=== PATIENT | female | born 1940 | race Caucasian/White ===

== ENCOUNTER 2017-11-18 18:30 | Inpatient (IN) | payer MEDICARE, BC ==
[2017-11-18 19:02] VITALS: BP 115/86
[2017-11-18] MEDS ORDERED: Maalox 30 mL Cup PO PRN (22:09)
[2017-11-19] MEDS: Potassium Chloride Elixir 20 mEq /15 mL UDC PO SCH (09:01)
[2017-11-19] MEDS: OLANZapine 5 mg Oral Disintegrating Tab PO SCH ×2 (09:03→16:29)
[2017-11-19] MEDS: Aspirin 325 mg EC PO SCH (15:07)
--- NOTE | 2017-11-19 19:09 | Psychiatric Evaluation ---
DATE OF SERVICE: 11/19/2017 JUSTIFICATION FOR HOSPITALIZATION: The patient is disorganized, hitting herself, hitting others. CHIEF COMPLAINT: Unruly behaviors. HISTORY OF PRESENT ILLNESS: A 77-year-old female coming into the hospital because she was disorganized, aggressive, was hitting self and hitting others upon initial presentation and history of dementia, wandering behaviors. On orym-qu-olpa, the patient refusing to speak with me, sleeping, but arousable, information from staff, discussion. Review of notes. Staff noting when she arrived, she was very unruly, but did calm down. PAST PSYCHIATRIC HISTORY: Dementia. FAMILY HISTORY: Noncontributory. SOCIAL HISTORY: Unclear. She does have an address in [facility]. It seems that she has a son. Unclear drugs, alcohol or tobacco. MEDICAL HISTORY: Please see full H and P. MENTAL STATUS EXAMINATION: Stated age, little eye contact. Sleeping, but arousable. Seems disoriented on exam, unclear SI or HI, unclear psychotic symptoms at this time. Poor insight, poor judgment, poor impulse control. PROVISIONAL DIAGNOSES: Dementia with behaviors; psychosis, unspecified. Other medical, please see full H and P. Functional impairments noted. Pain, unclear. ASSESSMENT: The patient unruly combative, agitated. PLAN: Continue Zyprexa. Treatment plan includes group as well as milieu therapy. CONDITIONS FOR DISCHARGE: Improved mood, improved affect, better control of mood symptoms, psychotic symptoms. [facility]# [id number]
--- NOTE | 2017-11-20 04:03 | History & Physical ---
ADMIT DATE: 11/19/2017 INTERNAL MEDICINE CONSULTATION REASON FOR CONSULTATION: Including left-sided CVA, atherosclerotic heart disease, hypertension, degenerative joint disease, multiple falls, and impaired balance, extrapyramidal overall muscles fasciculation and dyskinesia, impaired cognition, impaired mobility, and activity of daily living, history of schizophrenia in the past, dementia, left knee pain after falling. HISTORY OF PRESENT ILLNESS: A 77-year-old female who lives at home with the help of the son brought to the Emergency Room as son unable to take care of her and the patient did have multiple falls at home and wondering and impairing cognition and very hard to communicate with her. Workup at the [facility] revealed embolic type of stroke. Workup for the pain in the left knee with MRI revealed DJD. The patient became more agitated, aggressive, and shouting quite a bit, tried to get out of the bed and falling more often. So, 5150 hold placed and brought to the [facility] admission. The patient now wondering and always very hard to understand her due to the extrapyramidal movement of the oropharyngeal muscles for many years. Remained afebrile, no distress noted. Otherwise, main complaints are pain in the left knee. ALLERGIES: No known allergies. MEDICATIONS: See list. SOCIAL HISTORY: No smoking, no alcohol or substance abuse. FAMILY HISTORY: Noncontributory. REVIEW OF SYSTEMS: The patient denies any headache, vision problem. Denies any swallowing problem. No chest pain, no abdominal pain, no leg swelling, joint swelling, or rashes. No UTI symptomatology. No melena or bright red blood per rectum. PHYSICAL EXAMINATION: VITAL SIGNS: Temperature afebrile, pulse 90, respiratory rate 16, blood pressure 140/83. Height 1.5 meters, weight 59.8 kg. HEENT: Significant for oropharyngeal spontaneous dyskinetic movement with the protruding tongue, very hard to understand, thick speech. No icterus, no pallor. Mucosa is dry. NECK: Supple. SKIN: Turgor decreased. LUNGS: Clear. No rales, rhonchi. CARDIOVASCULAR: S1, S2 normal limit. ABDOMEN: Soft and benign. EXTREMITIES: No leg edema noted. MUSCULOSKELETAL: Left knee area, no joint effusions. GYM SUPERVISOR: No intake. Poor balance with oropharyngeal extrapyramidal dyskinetic movement. No clubbing, cyanosis, or synovitis, otherwise. LABORATORY TESTS: Sugar is 91. MRI of the brain reviewed acute left parietal stroke consistent with right facial droop. MRI of left knee revealed DJD. ASSESSMENT AND PLAN: 1. Acute left parietal stroke with right facial droop. 2. Hypertension with atherosclerotic heart disease. 3. Degenerative joint disease, especially knees. 4. Impaired balance. 5. 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 6. Impaired cognition. 7. Dementia. 8. 5150 hold due to severe agitation. 9. Impaired mobility and activities of daily living. 10. Dyslipidemia. 11. Chronic back pain. 12. Status post multiple falls. 13. Hypokalemia. PLAN: Continue patient's current medication and monitor clinically. Physical therapy, fall precaution and psychiatric consult with Dr. Nolasoc. JOB# [id number] POLLO
[2017-11-20 07:32] LABS: % BASOPHILS 0.6 % (0.0-2.0); % EOSINOPHILS 1.8 % (0.0-5.0); % LYMPHOCYTES 27.1 % (20.0-50.0); % MONOCYTES 11.7 % (2.0-10.0); % NEUTROPHILS 58.8 % (40.0-80.0); EOSINOPHILE ABSOLUTE 0.1 Th/cmm (0.1-0.4); HEMATOCRIT 36.9 % (41.0-60); HEMOGLOBIN 12.5 gm/dL (12-16); LYMPHOCYTE ABSOLUTE 1.4 Th/cmm (1.5-3.0); MEAN CELL VOLUME 88.7 fl (81-100); MEAN CORPUSCULAR HEMOGLOBIN 30.2 pg (27.0-31.0); MEAN PLATELET VOLUME 8.1 fl; MONOCYTE ABSOLUTE 0.6 Th/cmm (0.3-1.0); NEUTROPHILE ABSOLUTE 3.1 Th/cmm (1.8-8.0); PLATELET COUNT 256 Th/cmm (150-400); RED BLOOD COUNT 4.16 Mil/cmm (3.80-5.20); RED CELL DISTRIBUTION WIDTH 11.7 % (11.5-20.0); WHITE BLOOD COUNT 5.2 Th/cmm (4.8-10.8)
[2017-11-20 07:55] LABS: ALB/GLOB RATIO 1.3 (1.0-1.8); ALBUMIN 3.4 gm/dL (3.7-5.3); ALKALINE PHOSPHATASE 64 U/L (34-104); ANION GAP 9.6 (7.0-16.0); BILIRUBIN,TOTAL 0.6 mg/dL (0.3-1.0); BUN - UREA NITROGEN 27 mg/dL (7-25); CALCIUM SERUM 9.2 mg/dL (8.6-10.3); CARBON DIOXIDE 25.3 mEq/L (21.0-31.0); CHLORIDE 105 mEq/L (98-107); CHOLESTEROL 152 mg/dL (<200); CREATININE - SERUM 0.9 mg/dL (0.6-1.2); GLUCOSE 115 mg/dL (70-105); HDL -HIGH DENSITY LIPOPROTEIN 37 mg/dL (23-92); POTASSIUM SERUM 3.9 mEq/L (3.5-5.1); SGOT 44 U/L (13-39); SGPT/ALT 32 U/L (7-52); SODIUM SERUM 136 mEq/L (136-145); TRIGLYCERIDES 104 mg/dL (<150); URIC ACID 5.9 mg/dL (2.3-6.6)
[2017-11-20] MEDS: OLANZapine 5 mg Oral Disintegrating Tab PO SCH ×2 (09:28→16:37)
[2017-11-20] MEDS: Aspirin 325 mg EC PO SCH (09:28)
[2017-11-20] MEDS: Potassium Chloride Elixir 20 mEq /15 mL UDC PO SCH (09:28)
--- NOTE | 2017-11-20 18:23 | Progress Notes ---
DATE: 11/20/2017 SUBJECTIVE: The patient in the hospital has been disorganized, hitting self, hitting others. History of advanced dementia, quite on exam, allowing care, but remains impulsive, unpredictable, sometimes waking up very agitated and combative towards staff. On yxig-fk-dgli, the patient is AO to name only, irritable, disorganized, not making any sense. During my exam, medications were noted. ASSESSMENT: The patient remains symptomatic, ongoing confusional periods, combative and aggressive at times, impulsive. PLAN: We will continue to monitor given her ongoing symptoms. She is not safe for discharge at this time. Medications were noted. JOB# [id number]
[2017-11-21] MEDS: Potassium Chloride Elixir 20 mEq /15 mL UDC PO SCH (09:33)
[2017-11-21] MEDS: OLANZapine 5 mg Oral Disintegrating Tab PO SCH ×2 (09:40→16:50)
[2017-11-21] MEDS: Aspirin 325 mg EC PO SCH (09:40)
--- NOTE | 2017-11-21 17:17 | Progress Notes ---
DATE: 11/21/2017 SUBJECTIVE: The patient in the hospital, confused, AO to name only, does not really know where she is, what is going on, very disoriented, slept for about 9 hours last night, not answering any questions, steady gait, not wanting to use the wheelchair, noted to be fairly suspicious, paranoid, making nonsensical statements and asking staff to watch her bird, there are no birds around. ASSESSMENT: The patient is bizarre, making nonsensical statements, remains impulsive, unpredictable. Medications were noted. We will continue to monitor. JOB# [id number]
[2017-11-22] MEDS: OLANZapine 5 mg Oral Disintegrating Tab PO SCH (08:24)
[2017-11-22] MEDS: Aspirin 325 mg EC PO SCH (08:25)
--- NOTE | 2017-11-22 17:09 | Progress Notes ---
DATE: 11/22/2017 SUBJECTIVE: The patient is currently in the hospital, very confused, disoriented, AO to name only, not place, not year. She is pretty paranoid, keeps repeating "what did you call me, what did you call me." When I tell her that I asked if her name was Nano she does not believe me. Believes that I called her something else. Staff asked to involve to redirect her. She gets very close to me and stares at me intently. The patient talking about staff watching her bird, getting a high level of redirection, restless, preoccupied, easily irritable and agitated. ASSESSMENT: The patient with evidence of psychosis and angry. PLAN: We will continue to monitor. We will be adjusting her dosages of medications. Increase, for example, nighttime dosage of Zyprexa to target her paranoias and irritabilities. She has quite suspicious behaviors. Medications were reviewed. JOB# [id number]
[2017-11-23] MEDS: OLANZapine 5 mg Oral Disintegrating Tab PO SCH (08:49)
[2017-11-23] MEDS: Aspirin 325 mg EC PO SCH (08:55)
--- NOTE | 2017-11-23 16:34 | Progress Notes ---
DATE: 11/23/2017 SUBJECTIVE: The patient is currently in the hospital, confused, disoriented, had been pretty aggressive yesterday, paranoid yesterday, and the patient still asking staff about birds, noted to be restless, paranoid, AO to name only. The patient remains upset, angry easily triggered, disorganized thoughts, still fixated on bringing water to her birds, still angry. Medications were noted including doses and frequencies. I did increase her Zyprexa yesterday. ASSESSMENT: The patient remains symptomatic, ongoing behavioral disturbances, impulsive, and unpredictable. PLAN: We will continue to monitor, titrate, and adjust medications. The patient remains symptomatic. JOB# [id number]
[2017-11-24] MEDS: Aspirin 325 mg EC PO SCH (08:48)
[2017-11-24] MEDS: OLANZapine 5 mg Oral Disintegrating Tab PO SCH (08:49)
--- NOTE | 2017-11-24 10:07 | Progress Notes ---
DATE: 11/24/2017 SUBJECTIVE: The patient remains confused, disoriented, easily agitated, upset, sometimes intrusive rather. Staff noting she remains disorganized, not answering some questions, noted yesterday to be restless, poor redirection, Ativan given on the urgent basis. The patient is not answering any questions, mostly talking about . ASSESSMENT: The patient remains symptomatic, confused, disoriented, requiring urgent Ativan dosing yesterday. PLAN: We will continue to monitor, continue to titrate medications as tolerated. I will reach out to son today. JOB# [id number]
[2017-11-25] MEDS: OLANZapine 5 mg Oral Disintegrating Tab PO SCH (09:01)
[2017-11-25] MEDS: Aspirin 325 mg EC PO SCH (09:02)
--- NOTE | 2017-11-25 15:32 | Progress Notes ---
DATE: 11/25/2017 SUBJECTIVE: The patient remains combative at times, forgetful, paranoid some posturing noted, intrusive thoughts, angry, easily agitated, needing assistance with ADLs. I did contact the son yesterday, left a message, currently pending a call back. APS report has been filed because of the concerns for neglect. The patient had been residing at home. The patient was apparently found in the middle of the street, aggressive, hitting self and others. social worker aide is in touch with . The patient cannot live alone at this time. We are trying to help with placement. ASSESSMENT: The patient is forgetful, agitated, aggressive at times. PLAN: We will continue to monitor. I will be titrating her dose of Zyprexa given her ongoing behavioral disturbances. MEDICATIONS: Reviewed. JOB# [id number]
[2017-11-26] MEDS: Aspirin 325 mg EC PO SCH (09:07)
[2017-11-26] MEDS: OLANZapine 5 mg Oral Disintegrating Tab PO SCH (09:11)
--- NOTE | 2017-11-27 05:04 | Progress Notes ---
DATE: SUBJECTIVE: The patient was seen and evaluated. The patient's chart reviewed. Covering for Dr. Ma. Today, the patient was brought in here after the patient was found "wandering and disrobing." Today on ooti-bb-trkg evaluation, upon interview, he is a poor historian, easily forgetful, and at times angry during the interview, and easily agitated and waved her hand off to not to be interviewed. MENTAL STATUS EXAMINATION: Suspicious and neurocognitively impaired. ASSESSMENT AND PLAN: The patient with severe neurocognitive impairment, who presents agitated and aggressive at times. Pending more collateral information from son and also APS reported on file because of concerns of neglect. Due to the patient's symptoms and due to the patient's behavior and APS concerned, she is unable to formulate a safe plan outside a structured environment. JOB# [id number]
[2017-11-27] MEDS: Aspirin 325 mg EC PO SCH (08:36)
[2017-11-27] MEDS: OLANZapine 5 mg Oral Disintegrating Tab PO SCH (08:36)
--- NOTE | 2017-11-27 19:39 | Progress Notes ---
DATE: 11/27/2017 SUBJECTIVE: The patient was seen and evaluated. The patient's chart reviewed. This is Dr. Ospina covering for Dr. Ma. Today, on uviv-ta-iebu evaluation, the patient becomes very irritable upon interview, easily agitated. She becomes refusing at times. When attempted adequate emotions, she becomes ____. MENTAL STATUS EXAMINATION: Suspicious and paranoid. ASSESSMENT AND PLAN: Continues to be severely distraught and overwhelmed and anxious. We will continue with the primary psychiatric plan ____ APS report, which has been filed by the primary psychiatrist. JOB# [id number]
[2017-11-28] MEDS: Aspirin 325 mg EC PO SCH (09:18)
[2017-11-28] MEDS: OLANZapine 5 mg Oral Disintegrating Tab PO SCH (09:18)
--- NOTE | 2017-11-29 00:17 | Progress Notes ---
DATE: 11/28/2017 The patient remains confused, disoriented. She is quite demented, poorly oriented, preoccupied, focused on getting magazines, at times making nonsensical statements, hard time expressing herself. She is likely approaching her baseline. I did reach out to son the last week, left a voice message and never heard back from him. Over the weekend, Dr. Opsina noting that she remained somewhat suspicious, odd and confused. ASSESSMENT: The patient likely approaching her baseline, confused, disoriented, narrow cognitive impairments. She is pretty suspicious. PLAN: Continue to monitor. The patient seems to be doing well on current dosing of Zyprexa. We are trying to confirm placement. [facility]# [id number]
[2017-11-29] MEDS: OLANZapine 5 mg Oral Disintegrating Tab PO SCH (09:23)
[2017-11-29] MEDS: Aspirin 325 mg EC PO SCH (09:23)
--- NOTE | 2017-11-29 15:01 | Progress Notes ---
DATE: 11/29/2017 This 77-year-old female, very confused, disoriented, forgetful, difficulty expressing herself, hyperverbal, sometimes intrusive, escalates quickly, but she has been redirectable a lot less aggressive, of a lot less symptomatic, still mumbling to self, ongoing poor impulse control. Sleeping well, eating well, fairly calm at this time. We are working hard on placement. Son is the durable power of criminal defense attorney. She is involved with her placement. Medications were noted. She seems to be more stable on current dosing of Zyprexa. PLAN: We will monitor and follow up. Coordinate care with social work regarding safe discharge plan and good psychiatric followup. JOB# [id number]
[2017-11-30] MEDS: Aspirin 325 mg EC PO SCH (08:33)
[2017-11-30] MEDS: OLANZapine 5 mg Oral Disintegrating Tab PO SCH (08:35)
--- NOTE | 2017-11-30 10:15 | Progress Notes ---
DATE: 11/30/2017 The patient mumbling to self, psychotic appearing, irritable, no agitation, but very confused, difficulty expressing herself, slurred speech, very confused, disoriented, unable to care for basic needs. ASSESSMENT: The patient unpredictable, irritable, still labile at times, unable to unfortunately really express herself, unable to care for her basic needs. PLAN: Continue to monitor. The patient is doing fairly well with current dosing of medications. We will monitor and follow up. I did reach out to son via phone left currently pending a call back JOB# [id number] MTDD
--- NOTE | 2017-12-01 07:11 | Progress Notes ---
DATE: 12/01/2017 SUBJECTIVE: The patient remains quite disoriented. She knows that she is in the hospital. She knows her name. Beyond that she is pretty confused, disoriented, unable to verbalize her needs. Staff noting she is at pretty high fall risk, needs assistance with some of her ADLs, concerns about her ability to take care of herself. The patient apparently has expressed that she would like to go home, but she is too confused even to participate in attending groups. The son is the power of sports attorney would like the patient in a nursing facility, concerned mostly about her ability to care for herself. The patient is quite demented and disoriented, very difficulty with word finding, difficulty expressing herself. She is continent of bowel and bladder function. She is taking her medications, amenable to treatment. She does remain agitated at times, poor impulse control, a lot at times, needing redirection, gets very upset. ASSESSMENT: The patient remains symptomatic, confused, disoriented, overt concerns about her ability to care for herself, concerns about her capacity to be involved in decisions revolving around disposition given how forgetful she is. PLAN: We will continue to monitor. The patient originally came in because she was so disorganized, found in the middle of the street, aggressive, hitting others, very confused. I have attempted to reach out to son in the past did not hear back from him. I will once again try today to call the son to answer any questions. [facility]# [id number] POLLO
[2017-12-01] MEDS: Aspirin 325 mg EC PO SCH (09:04)
[2017-12-01] MEDS: OLANZapine 5 mg Oral Disintegrating Tab PO SCH (09:06)
[2017-12-02] MEDS: Aspirin 325 mg EC PO SCH (08:26)
[2017-12-02] MEDS: OLANZapine 5 mg Oral Disintegrating Tab PO SCH (08:31)
--- NOTE | 2017-12-02 13:58 | Progress Notes ---
DATE: 12/02/2017 FOLLOWUP NOTE The patient noted to be agitated, irritable, demanding, restless, unpredictable, hyperverbal, screaming at times. The patient does not know where she is. She does not know why she is here. She does not know the year. She does not know the month. She does know the day of the week. Poor frustration tolerance, unpredictable. Apparently, the son came in on 11/28/2017 and had the patient signed a durable power of admitted attorneys note. I asked the patient if she recalls signing any paperwork. She states no, I let her know that she signed documentation about power of admitted attorneys. She states that she does not remember signing this. I asked her if she knows what a power of admitted attorneys is and she states no. I do have concerns about the patient's capacity at the time of signing of that a power of admitted attorneys declaration. Given that her mental status has been quite consistently poor since she has been in the hospital there have been any real changes or improvements in regards to her level of orientation. I asked her actually multiple times during the course of my snxr-hi-nqgw with her if she knows what a power of admitted attorneys is or what the durable power of admitted attorneys is and she states "no." ASSESSMENT: The patient oriented to name. She does not know where she is. She does not know why she is here. She does not know the year, the month or the day of the week. She is convinced that she will be leaving today and is convinced that she will be going home, although there are real concerns about her ability to care for her basic needs. Although, she was tending to her house and her house was quite clean. She was wandering from the house and apparently was aggressive in public and confused. She remains pretty confused. It seems that she has no recollection of signing any documentation about durable power of admitted attorneys and in fact has no understanding of what a durable power of admitted attorneys actually is or means. PLAN AND RECOMMENDATIONS: Based on my toyp-wn-hthr contact with the patient, discussion with nursing staff as well as following this patient over the past few days to weeks, I feel the patient currently lacks capacity to be involved and the ability to sign documentation revolving around durable power of admitted attorneys and did not have the capacity to be involved in that particular conversation when she signed paper work regarding durable power of admitted attorneys on 11/28/2017. JOB# [id number]
[2017-12-03] MEDS: Aspirin 325 mg EC PO SCH (08:25)
[2017-12-03] MEDS: OLANZapine 5 mg Oral Disintegrating Tab PO SCH (08:25)
--- NOTE | 2017-12-04 04:09 | Progress Notes ---
DATE: 12/03/2017 SUBJECTIVE: The patient was seen and evaluated. The patient's chart reviewed. This is Dr. Ospina covering for Dr. Ma. Today on nhhm-ch-gndl evaluation, the patient is noted to be easily irritable, agitated, restless and pacing. When attempted to discuss with her a little more engaged conversation, the patient becomes more irritable and walked with me. MENTAL STATUS EXAMINATION: Still disorganized. Limited historian, severe neurocognitively impaired. ASSESSMENT AND PLAN: The patient is tolerating medication without complication. We will continue with primary psychiatrist's treatment plan and goals to continue pursuing ____. JOB# [id number]
[2017-12-04] MEDS: Aspirin 325 mg EC PO SCH (09:09)
[2017-12-04] MEDS: OLANZapine 5 mg Oral Disintegrating Tab PO SCH (09:09)
--- NOTE | 2017-12-05 01:32 | Progress Notes ---
DATE: 12/04/2017 SUBJECTIVE: The patient was seen and evaluated. Today on ufxm-sr-otkj evaluation, disorganized thought process. He is disengaged, irritable. MENTAL STATUS EXAMINATION: Disorganized. Limited historian, severe neurocognitive impairment. ASSESSMENT AND PLAN: Severely distraught, severe psychotic, severe disorganized thought process. We will continue with primary psychiatrist's treatment plan and goals and continue pursuing a safe disposition once further stabilized. [facility]# [id number]
[2017-12-05] MEDS: OLANZapine 5 mg Oral Disintegrating Tab PO SCH (08:09)
[2017-12-05] MEDS: Aspirin 325 mg EC PO SCH (08:10)
--- NOTE | 2017-12-05 21:32 | Discharge Summary ---
DATE OF DISCHARGE: 12/05/2017 JUSTIFICATION FOR HOSPITALIZATION: Disorganized, hitting herself, hitting others, demented, confused, apparently wandering out of her home. HISTORY OF PRESENT ILLNESS: A 77-year-old female coming to the hospital because she was disorganized, aggressive, hitting herself, hitting others, seemed lost in the streets, living alone, not a very good historian. Does not know where she is or what is going on. Son involved from a distance. The patient had been living alone. Concerns about her ability to live alone, although her house was well taken care of. PAST PSYCHIATRIC HISTORY: It seems she has a history of dementia. FAMILY HISTORY: Noncontributory. SOCIAL HISTORY: She lives by herself. Her son is involved from a distance. No drugs, alcohol, or tobacco currently. PAST MEDICAL HISTORY: Please see full H and P. MENTAL STATUS EXAMINATION: Please see full psych eval for details. PROVISIONAL DIAGNOSES: Dementia; dementia with behavioral disturbances; mood, unspecified; anxiety, unspecified. Under medical, please see full H and P. HOSPITAL COURSE: After initial assessment, whereby the patient was found in the middle of the street, disorganized, aggressive, and hitting others. She was placed in the hospital, noted to be pretty irritable, paranoid, very confused, did not know where she is, does not know why she is here, does not know the year or the month, just fixated on going home. Concerns were brought up about her ability to care for her basic needs. The patient started talking about her bird, wanting us to water her bird who she believes was in the hospital, noted to be unkempt and wandering behaviors, sometimes aggressive, agitated, requiring staff redirection. Son was involved and placements at one point having the patient sign a durable power of document review attorney, but the patient does not really have the capacity to be involved in this type of conversation. Dr. Ospina saw the patient toward the latter end of her hospitalization noted that she was disorganized, limited historian, neurocognitive impairment. As her hospitalization progressed, she did calm down. Her mood improved, affect improved. She was less paranoid and aggressive, but remained very confused. By 12/05/2017, the patient was no longer aggressive and placement was confirmed and she was discharged. CONDITION UPON DISCHARGE: Improved. Fair ADLs, some eye contact. Speech: Difficulty expressing herself, mumbling at times. Mood "okay." Affect flat. Thought processes were disoriented, AO to name only. No SI, no HI, no overt psychotic symptoms. Insight and judgment remain somewhat diminished, although she was taking medications. Better impulse control. The patient no longer aggressive, no longer agitated. Ongoing concerns about her ability to live by herself. DISCHARGE DIAGNOSES: Neurocognitive impairment; dementia with behaviors; anxiety, unspecified; psychosis, unspecified. Under medical, please see full H and P. PROGNOSIS: The patient follows up with penitentiary and remains compliant with treatment. Prognosis will improve, otherwise guarded. JOB# [id number]
== END 2017-12-05 14:30 | DRG 885 ==
LOC: GERO2 18:30
PROVIDERS: ADMIT Psychiatry & Neurology Psychiatry; ATTEND Psychiatry & Neurology Psychiatry
DX: F29 Unspecified psychosis not due to a substance or known physiological condition (principal); F03.91 Unspecified dementia, unspecified severity, with behavioral disturbance; M54.9 Dorsalgia, unspecified; I25.10 Atherosclerotic heart disease of native coronary artery without angina pectoris; I10 Essential (primary) hypertension; M19.90 Unspecified osteoarthritis, unspecified site; G24.9 Dystonia, unspecified; R29.810 Facial weakness; M17.0 Bilateral primary osteoarthritis of knee; I69.320 Aphasia following cerebral infarction; G89.29 Other chronic pain; E87.6 Hypokalemia; F39 Unspecified mood [affective] disorder; F41.9 Anxiety disorder, unspecified; W18.30XA Fall on same level, unspecified, initial encounter; Y93.89 Activity, other specified; Y92.049 Unspecified place in boarding-house as the place of occurrence of the external cause; Y99.8 Other external cause status
CPT/HCPCS: 36415-UA; 80053-TC; 80061-TC; 82948-90; 83036-90; 84443-TC; 84550-TC; 85025-TC; 86803-90; J7051; Z7610